=== PATIENT | male | born 1980 | race Caucasian/White ===

== ENCOUNTER 2018-06-06 19:59 | Emergency (ER) | payer BC, SELFPAY ==
[2018-06-06] MEDS ORDERED: Tobramycin 0.3% Ophth Oint 3.5 GM TUBE ONE (20:26)
[2018-06-06] MEDS ORDERED: Fluorescein Opthalmic Strip ONE (20:27)
[2018-06-06] MEDS ORDERED: Gentamicin Ophth Soln 0.3% 5 ml Bottle ONE (20:49)
[2018-06-06] MEDS ORDERED: HYDROcodone/Acetaminophen 5/325 mg Tablet ONE (21:21)
== END 2018-06-06 21:25 | disposition home or self-care (01) ==
LOC: BURERS 19:59
DX: H10.9 Unspecified conjunctivitis (principal)
CPT/HCPCS: 99283